=== PATIENT | female | born 1970 | race Two or more races ===

== ENCOUNTER 2017-10-07 20:35 | Inpatient (IN) | payer MEDICAID ==
[~2017-10-07] VITALS: Ht 165.1 cm; Wt 75.7 kg
--- NOTE | 2017-10-07 20:51 | NUR ---
PT BIB [facility] FOR LOW O2 SAT PER FACILITY STAFF. UPON ARRIVAL, RT TAM REPOSITIONED TRACH AND ADJUUSTED TRACH TIES, WHICH IMMEDIATELY IMPROVED HER O2 SAT TO 100%. PLACED ON PREVIOUS VENT SETTINGS. LETTY UPPER EXTREMITY EDEMA. NOTED WITH COLOSTOMY, PANDA CATH IN PLACE. URINE SAMPLE OBTAINED FROM PANDA CATH PORT. SKIN TAUT, WARM, DRY. NOTED HYPOTENSIVE UPON ARRIVAL. OBTUNDED. IN ER BED 11 ON MONITOR AND CONTINUOUS PULSE OX.
[2017-10-07 20:54] VITALS: BP 73/44
[2017-10-07] MEDS ORDERED: LEVOFLOXACIN 750 MG /D5W 150ML 150 ML IV ONE ×2 (21:00→21:56)
[2017-10-07] MEDS ORDERED: CEFTRIAXONE 1GM BAG (ER ONLY) 50 ML IV ONE (21:00)
[2017-10-07] MEDS ORDERED: VANCOMYCIN 1 GM in IV D5W 250 ML IV ONE (21:00)
[2017-10-07] MEDS ORDERED: IV NS 0.9% 1,000 ML BAG IV ONE (21:00)
--- NOTE | 2017-10-07 21:07 | NUR ---
RECYCLED BP, NO HYPOTENSION AT THIS TIME. UPDATED DR HUERTAS OF THIS.
--- NOTE | 2017-10-07 21:21 | NUR ---
UNABLE TO OBTAIN IV ACCESS. VERBAL ORDER FOR MIDLINE OBTAINED FROM DR HUERTAS. MIDLINE RN NOTIFIED.
--- NOTE | 2017-10-07 21:36 | NUR ---
MIDLINE RN AT BEDSIDE
--- NOTE | 2017-10-07 21:44 | NUR ---
BLOOD SENT TO LAB, DRAWN FROM MIDLINE
[2017-10-07] MEDS ORDERED: CEFTRIAXONE 1 G VIAL ONE (21:56)
[2017-10-07] MEDS ORDERED: VANCOMYCIN 1 GM VIAL ONE (21:56)
[2017-10-07 22:11] LABS: HEMATOCRIT 30 % (33-45); HEMOGLOBIN 9.8 g/dL (11.5-14.8); LYMPHOCYTES # (AUTO) 0.4 /CMM (0.8-4.8); LYMPHOCYTES % (AUTO) 2.6 % (20.0-44.0); MEAN CORPUSCULAR HEMOGLOBIN 30 PG (26.0-33.0); MEAN CORPUSCULAR HGB CONC 33 g/dl (31.0-36.0); MEAN CORPUSCULAR VOLUME 91 fL (82-100); MONOCYTES # (AUTO) 0.6 /CMM (0.1-1.30); MONOCYTES % (AUTO) 3.5 % (2.0-12.0); NEUTROPHILS # (AUTO) 14.9 /CMM (1.8-8.9); NEUTROPHILS % (AUTO) 90.9 % (43.0-81.0); PLATELET COUNT (AUTO) 350 /CMM (150-450); RDW COEFFICIENT OF VARIATION 16.1 (11.5-15.0); RED BLOOD CELL COUNT(AUTO) 3.26 MIL/uL (4.0-5.2); WHITE BLOOD COUNT (AUTO) 16.4 K/uL (4.3-11.0)
--- NOTE | 2017-10-07 22:12 | NUR ---
PAGED DR. PONCE FOR ADMIT
[2017-10-07 22:25] LABS: APPEARANCE,URINE TURBID (CLEAR); BILIRUBIN,URINE NEGATIVE (NEGATIVE); BLOOD, URINE 3+ Ery/uL (NEGATIVE); COLOR,URINE YELLOW (YELLOW); KETONES,URINE NEGATIVE (NEGATIVE); LEUKOCYTE ESTERASE ,URINE 3+ (NEGATIVE); NITRITE, URINE POSITIVE (NEGATIVE); PH,URINE 6.5 (5.0-8.0); PROTEIN,URINE 3+ mg/dl (NEGATIVE); UGLUCOSE NEGATIVE (NEGATIVE); UROBILINOGEN,URINE 0.2 EU/dL (0.2)
[2017-10-07 22:33] LABS: INR 0.99 (0.87-1.13)
[2017-10-07 22:36] LABS: TROPONIN I 0.018 ng/mL (0.00-0.056)
[2017-10-07 22:42] LABS: ALBUMIN 1.6 g/dL (3.4-5.0); BILIRUBIN,DIRECT 0.2 mg/dL (0.0-0.2); BILIRUBIN,TOTAL 0.5 mg/dL (0.2-1.0); CALCIUM, SERUM 8.3 mg/dL (8.5-10.1); CREATININE 6.7 mg/dL (0.6-1.3); POTASSIUM 5.2 mmol/L (3.5-5.1); TOTAL PROTEIN, SERUM 7.2 g/dL (6.4-8.2)
[2017-10-07 22:56] LABS: BACTERIA,URINE Moderate /HPF (None Seen); RBC,URINE 51-80 /HPF (0-2); SQUAMOUS EPITHELIAL CELL,UR Few /HPF (None Seen); WBC,URINE TOO NUMEROUS TO COUN /HPF (0-3); YEAST,URINE Many /HPF (None Seen)
--- NOTE | 2017-10-08 00:55 | NUR ---
TELE BED 319
[2017-10-08] MEDS ORDERED: AZITHROMYCIN 250 MG TABLET PO ONE (01:00)
--- NOTE | 2017-10-08 01:50 | NUR ---
PT TRANSPORTED TO RM 319 IN STABLE CONDITION Addendum: 10/08/17 at 0225 by HFO[facility] VIA ACLS PROTOCOL
--- NOTE | 2017-10-08 02:45 | NUR ---
BEAMER OPERATORGOLF COURSE MECHANIC NOTES Tele monitor shows: Sinus rhythm; HR 70-75. Patient received from ER around 0200 am for UTI under Dr. Dustin Lee's care. Patient was brought in to [facility] ER for low oxygen saturation. Per ER Nurse report, RT adjusted trach and patient has been saturating 100%. Dr. Lee has already placed orders prior to transferring patient to Tele 3W. Patient is non-verbal, on trach, vent setting: peak 60 TV 450 PEEP 5 FiO2 40%. Skin body assessment done. Wound Care and Case Management consultation requested. Wound cleaned and dressing changed. Perez cath and colostomy in place. Colostomy changed. No medical history/medication reconciliation/GT feeding information obtained from ER. Will call [facility] for more information regarding medical history/diagnosis, medications and g-tube feeding. IV on CESAR #20g midline: patent and intact. Safety measures in place. Bed in locked and lowest position with HOB elevated, off-loaded bony prominence. Will continue to monitor and assess patient.
[2017-10-08] MEDS ORDERED: IV NS 0.9% 1,000 ML IV PRN (03:00)
[2017-10-08] MEDS ORDERED: ACETAMINOPHEN 650 MG/20.3 ML UDC GT PRN (03:00)
[2017-10-08] MEDS ORDERED: PIPERACILLIN /TAZOBACTAM 2.25 G VIAL IV ONE (05:13)
[2017-10-08] MEDS: PIPERACILLIN /TAZOBACTAM 2.25 G in IV D5W 50 ML IV SCH ×2 (05:16→13:08)
--- NOTE | 2017-10-08 05:17 | NUR ---
RIVET STICKER - NON-ADMIN NOTES Duplicate
--- NOTE | 2017-10-08 05:52 | NUR ---
REGAL AGILE TEST LEAD LILLIAN [phone] [facility] [address] [place] [address]
--- NOTE | 2017-10-08 06:50 | NUR ---
TROUT FARMER NOTES Called [facility] and spoke with YESSI Menezes and informed him that we did not received H&P and med list. Clfi stated that he will fax it sarah. Fax number provided. Awaiting for papers. Informed oncoming shift nurse.
--- NOTE | 2017-10-08 07:11 | NUR ---
INTERNET SECURITY SPECIALIST CLOSING NOTES Tele monitor shows: Sinus rhythm; HR 70-75. Report given. Patient remained in bed, HOB elevated, off-loaded bony prominence. Turned and repositioned every two hours. IV on CESAR #20g midline: patent and intact with NS @100ml/hr running, tolerating well. Clif from [facility] faxed H&P and medlist and handed it to oncoming shift nurse. Safety measures in place. Bed in locked and lowest position with call light and bed alarm on. All needs anticipated and met. Vent setting: Peak 60 TV 450 PEEP 5 FiO2 40%. Antibiotic given. Endorsed to oncoming shift nurse
[2017-10-08 07:16] LABS: BASOPHILS % (AUTO) 0.1 % (0.0-2.0); EOSINOPHILS % (AUTO) 2.3 % (0.0-6.0); HEMATOCRIT 27 % (33-45); HEMOGLOBIN 8.9 g/dL (11.5-14.8); LYMPHOCYTES # (AUTO) 1.3 /CMM (0.8-4.8); LYMPHOCYTES % (AUTO) 10.2 % (20.0-44.0); MEAN CORPUSCULAR HEMOGLOBIN 31 PG (26.0-33.0); MEAN CORPUSCULAR HGB CONC 34 g/dl (31.0-36.0); MEAN CORPUSCULAR VOLUME 92 fL (82-100); MONOCYTES # (AUTO) 0.6 /CMM (0.1-1.30); MONOCYTES % (AUTO) 4.8 % (2.0-12.0); NEUTROPHILS # (AUTO) 10.9 /CMM (1.8-8.9); NEUTROPHILS % (AUTO) 82.6 % (43.0-81.0); PLATELET COUNT (AUTO) 265 /CMM (150-450); RDW COEFFICIENT OF VARIATION 16.2 (11.5-15.0); WHITE BLOOD COUNT (AUTO) 13.3 K/uL (4.3-11.0)
--- NOTE | 2017-10-08 07:36 | NUR ---
GOVERNMENT TEACHER OPENING NOTES RECEIVED PATIENT IN NO APPARENT DISTRESS. BEDSIDE RAILS ARE UPX2. BED IS LOCKED AND LOWERED. CALL LIGHT IS WITHIN REACH. IV LINE IS INTACT AND PATENT. WILL CONTINUE TO MONITOR PATIENT.
[2017-10-08 07:51] LABS: CALCIUM, SERUM 8.1 mg/dL (8.5-10.1); CREATININE 6.6 mg/dL (0.6-1.3); POTASSIUM 4.7 mmol/L (3.5-5.1)
[2017-10-08 08:00] VITALS: BP 129/72
[2017-10-08] MEDS ORDERED: ASCO500T9 GT (08:28)
[2017-10-08] MEDS ORDERED: INSU100V11 SQ (08:28)
[2017-10-08] MEDS ORDERED: AMLO2.5T GT (08:28)
[2017-10-08] MEDS ORDERED: PANT40SU GT (08:28)
[2017-10-08] MEDS ORDERED: CLON0.1T GT (08:28)
[2017-10-08] MEDS ORDERED: POTA20LI4 GT (08:28)
[2017-10-08] MEDS ORDERED: INSU100V10 SQ (08:28)
[2017-10-08] MEDS ORDERED: FERR325T24 GT (08:29)
--- NOTE | 2017-10-08 08:30 | NUR ---
SPOKE TO MED RECON NURSE. MED RECON NURSE WILL UPDATE MEDICATION TO SYSTEM. DR. PONCE MADE AWARE OF MED RECONCILIATION.
[2017-10-08] MEDS ORDERED: FERROUS SULFATE (325 MG) 325 MG/TAB TABLET GT SCH (09:00)
[2017-10-08] MEDS ORDERED: PANTOPRAZOLE 40 MG/PACK PACK GT SCH (09:00)
[2017-10-08] MEDS ORDERED: DEXTROSE 50%-WATER 50 ML DISP.SYRIN IV PRN (09:00)
[2017-10-08] MEDS ORDERED: INSULIN REGULAR, HUMAN 100 UNIT/ML 3 ML VIAL SQ PRN (09:00)
[2017-10-08] MEDS ORDERED: AMLODIPINE BESYLATE 2.5 MG TABLET GT SCH (09:00)
[2017-10-08] MEDS ORDERED: ASCORBIC ACID 500 MG TABLET GT SCH (09:00)
[2017-10-08] MEDS ORDERED: CLONIDINE HCL 0.1 MG TABLET GT SCH (09:00)
--- NOTE | 2017-10-08 10:34 | NUR ---
RT RED PT TRACHED INTACT AND SECURED ON MECH VENT GOLD ORDERED SETTINGS ALARMS ON AND AUDIBLE VENT PLUGGED IN RED OUTLET BAG AND MASK AT [facility]. NO RESP DISTRESS NOTED ATT WILL CONTINUE TO MONITOR
--- NOTE | 2017-10-08 11:03 | NUR ---
SPOKE TO DIETARY TO PROVIDE TUBE FEEDING RECOMMENDATIONS. PATIENT TO BE DISCHARGED TODAY TO [facility].
[2017-10-08 12:00] VITALS: BP 142/63
[2017-10-08] MEDS ORDERED: BLOOD SUGAR DIAGNOSTIC 1 EACH STRIP IN SCH (12:00)
--- NOTE | 2017-10-08 14:10 | NUR ---
TAPE SEWING MACHINE OPERATOR CLOSING NOTES PATIENT DISCHARGED IN STABLE CONDITION. IN NO APPARENT DISTRESS. PATIENT IS GOING TO [facility]. EXITCARE PROVIDED TO EMERGENCY MEDICAL TEAM. BELONGINGS WERE CHECKED. LEFT UPPER ARM MIDLINE REMAINS IN PLACE FOR CONTINUITY OF CARE AT [facility]. PANDA CATHETER REMAINS IN PLACE. GAVE REPORT TO HARVEY CHARGE NURSE AT [facility]. FAMILY WAS MADE AWARE OF TRANSFER. PATIENT ESCORTED OUT OF THE FACILITY VIA AMBULANCE.
[2017-10-08] MEDS ORDERED: INSULIN GLARGINE, 100 UNIT/ML CARTRIDGE SQ SCH (22:00)
== END 2017-10-08 11:45 | disposition short-term general hospital (02) | DRG 466 ==
LOC: ER 20:37 → TELE 10-08 01:19
PROVIDERS: ADMIT Internal Medicine; ATTEND Internal Medicine
PROC: 5A1935Z Respiratory Ventilation, Less than 24 Consecutive Hours (ICD-10-PCS; principal; 2017-10-08)
PROC: B547ZZA Ultrasonography of Left Subclavian Vein, Guidance (ICD-10-PCS; principal; 2017-10-08)
PROC: 05H633Z Insertion of Infusion Device into Left Subclavian Vein, Percutaneous Approach (ICD-10-PCS; principal; 2017-10-08)
DX: T83.511A Infection and inflammatory reaction due to indwelling urethral catheter, initial encounter (principal); N17.0 Acute kidney failure with tubular necrosis; A41.9 Sepsis, unspecified organism; G93.1 Anoxic brain damage, not elsewhere classified; E43 Unspecified severe protein-calorie malnutrition; Z99.11 Dependence on respirator [ventilator] status; J96.11 Chronic respiratory failure with hypoxia; R53.2 Functional quadriplegia; E11.22 Type 2 diabetes mellitus with diabetic chronic kidney disease; N39.0 Urinary tract infection, site not specified; E11.9 Type 2 diabetes mellitus without complications; I12.9 Hypertensive chronic kidney disease with stage 1 through stage 4 chronic kidney disease, or unspecified chronic kidney disease; N18.9 Chronic kidney disease, unspecified; Z86.73 Personal history of transient ischemic attack (TIA), and cerebral infarction without residual deficits; R13.10 Dysphagia, unspecified; E86.0 Dehydration; E87.1 Hypo-osmolality and hyponatremia; E11.622 Type 2 diabetes mellitus with other skin ulcer; D64.9 Anemia, unspecified; Y84.6 Urinary catheterization as the cause of abnormal reaction of the patient, or of later complication, without mention of misadventure at the time of the procedure; Y92.009 Unspecified place in unspecified non-institutional (private) residence as the place of occurrence of the external cause; Z93.0 Tracheostomy status; Z93.1 Gastrostomy status; Z93.3 Colostomy status; Z90.49 Acquired absence of other specified parts of digestive tract; L98.419 Non-pressure chronic ulcer of buttock with unspecified severity
CPT/HCPCS: 31720; 36415; 71045-TC; 80048-TC; 80076-TC; 81000-TC; 82962-TC; 83605-TC; 84484-TC; 85025-TC; 85730-TC; 87040-TC; 87081-TC; 87086-TC; 87186-TC; 94003-TC; 94760-TC; 99082-TC; A4606; A6403; J0696; J1815; J1956; J2543; J3370; J7030; J7060; Z7610